=== PATIENT | male | born 1965 | race Caucasian/White ===

== ENCOUNTER 2023-10-24 16:09 | Emergency (ER) | payer BC ==
[2023-10-24] MEDS ORDERED: Sodium Chloride 0.9% 1,000 ML IV SCH (16:30)
[2023-10-24] MEDS ORDERED: Sodium Chloride 0.9% 10 ML Syringe FLUSH PRN (16:33)
[2023-10-24 18:28] LABS: ANION GAP 16.4 mmol/L (5.0-15.0); BUN/CREATININE RATIO 10.7 (6-25); CALCIUM 8.4 mg/dL (8.5-10.1); CARBON DIOXIDE,CO2 22.4 mmol/L (21.0-32.0); CREATININE 2.8 mg/dL (0.70-1.30); EST CRCL DRUG DOSING (CG) 27.14 mL/min; POTASSIUM,K 3.8 mmol/L (3.5-5.1)
[2023-10-24] MEDS ORDERED: Lidocaine 5% Oint 35.44 GM Tube ONE (19:00)
[2023-10-24] MEDS ORDERED: Docusate Sodium 250 MG Cap ONE (19:00)
== END 2023-10-24 19:10 | disposition home or self-care (01) ==
LOC: LB.ED 16:09
DX: K60.2 Anal fissure, unspecified (principal); N17.9 Acute kidney failure, unspecified; I10 Essential (primary) hypertension; E78.00 Pure hypercholesterolemia, unspecified; K21.9 Gastro-esophageal reflux disease without esophagitis; Z79.899 Other long term (current) drug therapy; Z12.5 Encounter for screening for malignant neoplasm of prostate; R35.0 Frequency of micturition; K62.89 Other specified diseases of anus and rectum
CPT/HCPCS: 36415; 80048; 96360; 99283; 99284; A9270; J7030; 72170; 80053; 81001; 85025; 86141; 87086; G0103

== ENCOUNTER 2025-08-05 09:58 | Emergency (ER) | payer BC ==
[2025-08-05] MEDS ORDERED: Sodium Chloride 0.9% 10 ML Syringe FLUSH PRN (10:05)
[2025-08-05 10:20] LABS: BASOPHILS ABSOLUTE AUTO 0.03 K/uL (0.02-0.10); BASOPHILS PERCENT AUTO 0.4 % (0.0-0.5); EOSINOPHILS ABSOLUTE AUTO 0.02 K/uL (0.04-0.40); EOSINOPHILS PERCENT AUTO 0.2 % (1.0-5.0); LYMPHOCYTES ABSOLUTE AUTO 0.83 K/uL (1.50-4.00); LYMPHOCYTES PERCENT AUTO 10.2 % (20.0-40.0); MEAN PLATELET VOLUME 10.2 fL (6.0-10.0); MONOCYTES ABSOLUTE AUTO 1.58 K/uL (0.20-0.80); MONOCYTES PERCENT AUTO 19.4 % (3.0-10.0); NEUTROPHILS ABSOLUTE AUTO 5.67 K/uL (2.00-7.50); NEUTROPHILS PERCENT AUTO 69.8 % (45.0-70.0); PLATELET COUNT,PLT 209 K/uL (150-400); RED BLOOD CELL COUNT 3.85 M/uL (4.50-6.50); RED CELL DISTRIBUTION WIDTH 12.1 % (11.0-16.0); WHITE BLOOD CELL COUNT,WBC 8.1 K/uL (4.0-11.0)
[2025-08-05 10:40] LABS: A/G RATIO 0.8 (0.8-2.0); ALANINE AMINOTRANSFERASE,ALT 96.0 U/L (12-78); ASPARTATE AMNIOTRANSFERASE,AST 90.0 U/L (15-37); BILIRUBIN TOTAL 1.1 mg/dL (0.0-1.0); BLOOD UREA NITROGEN,BUN 25.0 mg/dL (8-26); CARBON DIOXIDE,CO2 20.0 mmol/L (21.0-32.0); CHLORIDE,CL 98.0 mmol/L (98-107); CREATININE 2.44 mg/dL (0.70-1.30); EST CRCL DRUG DOSING (CG) 29.72 mL/min; ESTIMATED GFR 29.0 mL/min (>60); GLUCOSE RANDOM 120.0 mg/dL (74-100); POTASSIUM,K 3.5 mmol/L (3.5-5.1); PROTEIN TOTAL,TP 7.6 g/dL (6.4-8.2); SODIUM,NA 132.0 mmol/L (136-145)
[2025-08-05] MEDS: Ciprofloxacin in D5W 400 MG in Premix Bag 1 BAG IV ONE (11:27)
== END 2025-08-05 12:36 | disposition home or self-care (01) ==
LOC: LB.ED 09:58
DX: K52.9 Noninfective gastroenteritis and colitis, unspecified (principal); I10 Essential (primary) hypertension; E78.00 Pure hypercholesterolemia, unspecified; K21.9 Gastro-esophageal reflux disease without esophagitis; Z79.899 Other long term (current) drug therapy
CPT/HCPCS: 36415; 80053; 83735; 85025; 87507; 96361; 96365; 99283; 99284; J0744; J7030